=== PATIENT | female | born 1980 | race African-American/Black ===

== ENCOUNTER → 2020-06-30 15:52 | Outpatient (CLI) | payer BC, SELFPAY ==
--- NOTE | ~2020-06-30 | XR_ITS ---
EXAMINATION: XR abdomen/kub 1V EXAM DATE: 06/30/2020 16:12 INDICATION: Left ureteral stone, for surgery. Now having right-sided pain 3-4 days. TECHNIQUE: Frontal projection of the upper abdomen, frontal projection lower abdomen/pelvis for inter pretation. There is no prior study for comparison. FINDINGS: Small to moderate amount of stool and gas, stool is obscuring the ureterovesicular junctio ns. Calcifications in the pelvis are believed to be phleboliths. Renal contours are unremarkable. N o small bowel dilation. Left upper quadrant surgical clips. Lower lumbar facet arthropathy. IMPRESSION: 1. Pelvic calcifications. Reviewed, dictated and finalized at location A. IMPRESSION: 1. Pelvic calcifications.
== END ==
PROVIDERS: Visit Provider Urology
DX: N20.1 Calculus of ureter (principal)
CPT/HCPCS: 74018

== ENCOUNTER 2021-02-25 11:17 | Outpatient (CLI) | payer BC, SELFPAY ==
--- NOTE | 2021-02-25 11:33 | ECG_ITS ---
Measurements Intervals [place] Rate: 54 P: 8 IL: 136 QRS: 32 QRSD: 94 T: 25 QT: 388 QTc: 371 Interpretive Statements SINUS BRADYCARDIA MINIMAL Q WAVES- INFERIOR LEADS BORDERLINE ECG Electronically Signed On 02-25-2021 12:01:12 [employer] by Hai Mix D.O.
[2021-02-25 12:03] LABS: Anion Gap 3 mmol/L (8-16); Blood Urea Nitrogen 14 mg/dL (7-17); Calcium 9.5 mg/dL (8.4-10.2); Carbon Dioxide 30 mmol/L (22-30); Chloride 98 mmol/L (98-107); Estimated Glomerular Filt Rate > 60; Glucose 89 mg/dL (65-110); Potassium 3.9 mmol/L (3.4-5.0); Sodium 131 mmol/L (137-145)
== END 2021-02-25 11:18 | disposition home or self-care (01) ==
PROVIDERS: Anesthesiology; Visit Provider Orthopaedic Surgery
DX: I10 Essential (primary) hypertension (principal); Z79.899 Other long term (current) drug therapy
CPT/HCPCS: 36415; 80048; 93005

== ENCOUNTER 2021-03-03 00:53 | Day surgery (SDC) | payer BC, SELFPAY ==
[2021-02-24 10:13] VITALS: BMI 31.4
--- NOTE | 2021-02-24 10:26 | PC.NURSE ---
Report to the Outpatient Waiting Room, entrance under the green pavilion located off [facility], at time 9:00 on date 03/03/21. OR Time: 11:00. - You and your visitor will be asked a series of questions to screen for COVID 19 for your protection. - A mask is required within the hospital. - Only one visitor is allowed at this time. Patient visitors will be guided where to wait when not with patient. Preoperative COVID Testing Requirements: No COVID Test needed if: (proof is required; if not received patient will have Rapid Test prior to entry) - Patient has received COVID Vaccine at least 14 days prior to procedure date or - Patient has positive COVID test result within last 90 days of surgery date. COVID Test needed if above criteria is not met If not COVID vaccinated a COVID test must be conducted within 72 hours of surgery and patient is asked to isolate self from time of testing until procedure. You will go to the [facility] for your COVID testing. The [facility] is located at the corner of [address] [facility]. You will only be called if COVID results are positive and your surgeon may reschedule your elective surgery date. Patients may have clear liquids (water, carbonated beverages, clear teas, apple juice) until 3 hours prior to surgery (8:00) with a maximum of 20 ounces. - No food from midnight until time of surgery - Infants may have breast milk until 4 hours before surgery, formula 6 hours prior to surgery. - Children will be allowed to drink immediately following surgery. If applicable, please bring a bottle or sippy cup to assist with drinking. Juice, water, soda, and popsicles are readily available. For infants on formula, please bring formula the day of surgery. Pacifiers are allowed. Take the following medications with a SIP of water the morning of surgery: AMLODIPINE Medications to discontinue per physician: VITAMINS/SUPPLEMENTS Date to take last dose: 02/27/21 Please no make-up, nail tamazight, hairspray, perfume, deodorant, or body powder the day of surgery. No jewelry (including any body piercings) or valuables the day of surgery, leave them at home. Please take a shower or bath the night before, or the morning of, surgery with an antibacterial soap. Wear comfortable, loose fitting clothing. - Jewelry must be removed prior to entering the operating room. Rings and piercings that are not removed may be cut off. - The hospital will not accept responsibility for valuables. - Please leave all valuables, including medications, at home the day of surgery. If you are going home after surgery, a licensed customer service driver must drive you home. - NO public transportation without another adult. - We recommend that an adult stay with you for 24 hours following discharge. - We also recommend that you do not drive, make important decision, drink alcoholic beverages, or take any drugs that were not prescribed by your health care provider for at least 24 hours after your discharge time. Follow any additional instructions given to you from your surgeon. Telephone instructions given to ZOHAIB GERBER and asked if any additional questions and then verbalized understanding. Patient advised to call surgeon office or pre surgery nurse liaison [phone] if any additional questions.
--- NOTE | 2021-03-02 14:26 | WPDANESEPPF ---
Anes - Initial Pre Proc Eval Procedure: Operation Date: 03/03/21 11:00 Proposed Procedures p Right Knee Arthroscopy, Lateral Release with Tendon Debridement - Brad Ortega MD Date/Time: 03/02/21 14:26 Surgeon: Brad Ortega MD Pre Op Diagnosis: right patellar tendonitis Patient Data Age: 40 Gender: F Height: 1.65 m Weight: 85.73 kg Allergies Allergy/AdvReac Type Severity Reaction Status Date / Time tree and shrub pollen Allergy Severe Anaphylaxis Verified 03/03/21 09:32 gabapentin AdvReac Mild Nausea Verified 03/03/21 09:32 NSAIDS (Non-Steroidal AdvReac Mild Other Verified 03/03/21 09:39 Anti-Inflamma Home Medications Medication Instructions Recorded Confirmed Type amlodipine 5 mg tablet 5 mg PO DAILY 11/27/20 03/03/21 History chlorthalidone 25 mg tablet 25 mg PO DAILY 11/27/20 03/03/21 History multivitamin 1 tablet PO DAILY 02/24/21 03/03/21 History Patient hx anesthesia problems: none Family hx anesthesia problems: none Results Review: All pre-operative results and documents have been reviewed as part of the pre-operative evaluation. [facility] Past Medical History Medical History (Updated 03/02/21 @ 14:27 by Lex Chaudhary MD) Allergic rhinitis Anxiety state, unspecified Bronchitis Chest pain, unspecified Conjunctivitis Contact dermatitis Elevated blood pressure reading with diagnosis of hypertension Eustachian tube dysfunction GERD (gastroesophageal reflux disease) Hypertension Hypoglycemia Knee pain Neck pain Obesity Otitis media Pharyngitis Plantar fasciitis Sciatica Shoulder pain Sinusitis, acute Sleep disorder Tuberculosis screening UTI (urinary tract infection) Vertigo Family History Family History Father Asthma Other Acute myocardial infarction Arthritis Cerebrovascular accident Hypertension Kidney failure Leukemia Social History Social History Smoking status: Never smoker Alcohol intake: current Alcohol use details: 2/MONTH Substance use: never Substance use type: does not use Living arrangements: with family Spiritual care concerns: No Anes - Eval Final PreProcedure Day of Procedure 03/02/21 14:26 Patient weight: obese Heart: regular rate and rhythm Lungs: clear to auscultation and normal air movement Airway: Mallampati scale class II Neurological: alert and oriented Last oral intake: >/= 8 hours ASA classification: III Emergent: no Anesthetic plan: proceed Anesthesia type and monitoring: general LMA Results Review: All pre-operative results and documents have been reviewed as part of the pre-operative evaluation. Informed Consent: The patient's anesthetic plan and its attendant risks and benefits were discussed with the patient/family/POA. Questions were solicited and answers provided to the satisfaction of the patient/family/POA.
[2021-03-03] VITALS (9 sets, daily range): BP systolic 131–144; BP diastolic 72–92; PULSE 64–99; RESP 14–20; TEMP 36.4–36.9; O2SAT 98–100
--- NOTE | 2021-03-03 07:25 | WPDHPUPDATE1 ---
History and Physical Update Update Date/Time: 03/03/21 07:25 History and Physical has been reviewed, including an updated exam of the patient. There are NO changes in the patient's condition. Risks, benefits, and alternatives have been discussed and questions answered. Patient agrees to proceed with procedure.
[2021-03-03] MEDS: ACETAMINOPHEN 500 MG TABLET 1000 MG PO (09:35)
[2021-03-03] MEDS: LACTATED RINGERS 1,000 ML 30 ML IV CONT (10:05)
[2021-03-03] MEDS: KETOROLAC 15 MG/ML VIAL (*BKC) IV PUSH (10:06)
--- NOTE | 2021-03-03 10:24 | SUR.PREOP ---
pt prefers walker to crutches,dr lou aware,left message for pt to instruct.
[2021-03-03 10:27] LABS: Sodium 132 mmol/L (137-145)
[2021-03-03] MEDS: ceFAZolin 2 GM/D5W 50 ML 2 GM/50 ML BAG IVPB (10:53)
[2021-03-03] MEDS: BUPIVACAINE/EPINEPHRINE 0.25% 10 ML VIAL 20 ML INFILTRATE (11:22)
--- NOTE | 2021-03-03 12:31 | SUR.PHASEI ---
PT AWAKE, STATES PAIN TO RT KNEE 08/14. PT REFUSING PAIN MEDS AT THIS TIME.
--- NOTE | 2021-03-03 14:35 | P.OP_ITS ---
Procedure Note - Detailed Date of Procedure 03/03/21 Pre-op Diagnosis 1. Right patellar tendonitis 2. Lateral patellar facet overload syndrome. Post-op Diagnosis same Procedure Performed 1. Arthroscopic lateral release 2. Open patellar tendon debridement Surgeon Brad Ortega MD [employer] Manager[employer] Supervisor Dinora Plaza PA-C Anesthesia general Indications Severe sharp pain at the inferior lateral pole of the patella. Radiographs showed chondromalacia patella and trochlear chondromalacia with lateral tilting of the patella. MRI showed signal at the patella tendon patellar attachment the lateral aspect. Subtle bony changes as well. The patient was exquisitely tender at this area. This was limiting her ability to perform normal activities of daily living and exercise. Findings Moderate patellofemoral chondromalacia. Mild degeneration of the proximal patellar tendon attachment at the lateral 3rd of the patella consistent with the MRI findings. Description of Procedure Patient was given a general anesthetic. Preoperative antibiotics were given. The knee was prepped and draped in the usual sterile fashion. The arthroscopic knee raphael was used. The proposed incision was marked. 0.5% Marcaine with epinephrine was injected. 20 cc total used throughout the procedure. The lateral portal was slightly extended to allow for exposure of the lateral patellar tendon attachment at the patella. Inspection of the joint revealed [id number] patellofemoral chondromalacia grade 2. Fairly large area. Mild lateral patellar tilt. No other significant abnormal findings. The lateral release was performed with the hook radiofrequency Wand. The release was started just distal to the vastus lateralis. This was brought down to the lateral arthroscopic portal. Patella showed excellent freedom of movement to tilting. Incision was gently manipulated to visualize the distal lateral aspect of the patella tendon and patella. There was a slight split in the tendon consistent with the MRI findings. This was opened and mildly degenerative tissue was debrided with the knife and rongeur. The distal bony attachment that corresponded with the area of increased signal on the MRI, was also lightly debrided. tourniquet was released. The wounds were irrigated and closed with interrupted 3-0 and 4-0 Monocryl suture followed by Steri-Strips. A sterile dressing with a bulky bolster along the lateral retinaculum was placed. Light compression with an Ton bandage. Knee immobilizer placed. The patient was extubated and brought to the recovery room in stable condition. There were no complications. Estimated Blood Loss 10 Drains No Pathology none sent Complications No immediate complications Condition stable Disposition same day
== END 2021-03-03 14:30 | disposition home or self-care (01) ==
PROVIDERS: Anesthesiology; Visit Provider Orthopaedic Surgery
PROC: (CPT 29870; principal; 2021-03-03 11:00)
DX: M76.51 Patellar tendinitis, right knee (principal); M22.8X1 Other disorders of patella, right knee; I10 Essential (primary) hypertension; E66.9 Obesity, unspecified; Z68.32 Body mass index [BMI] 32.0-32.9, adult
CPT/HCPCS: 29873; 11043; 36415; 84295; A9270; J0690; J1100; J1885; J2250; J2405; J2704; J3010; J7120; L1830

== ENCOUNTER 2023-09-24 21:10 | Emergency (ER) | payer BC, SELFPAY ==
[2023-09-24] VITALS (13 sets, daily range): BP systolic 120–152; BP diastolic 79–82; PULSE 59–80; RESP 9–22; TEMP 36.6; O2SAT 98–100
--- NOTE | ~2023-09-24 | CT_ITS ---
EXAMINATION: CT abdomen pelvis wo con DATE: 09/24/2023 23:42 INDICATION: Left flank pain radiating anteriorly. TECHNIQUE: Computed tomography (CT) of the abdomen and pelvis was performed without intravenous contr ast. Automated exposure control and iterative reconstruction technique were employed. Exam dose: 714 .53 mGy-cm total exam DLP. COMPARISON: 06/30/2020 KUB FINDINGS: The lung bases are clear. Normal heart size. No pericardial or pleural effusion. Small sliding hiatal hernia. Status post gastric stapling procedure. The liver, gallbladder, bile ducts, spleen, pancreas, pancreatic duct, adrenal glands and kidneys are unremarkable on this limited noncontrast examination. No urinary tract calculus or hydroureteronephrosis. Bilateral calcified pelvic phleboliths. No hydrou reteronephrosis. Normal caliber of the abdominal aorta. No intraperitoneal or retroperitoneal or pelvic mass lesion or adenopathy or ascites. Urinary bladder is unremarkable. Normal appendix. Diverticulosis of the colon; no CT evidence of diverticulitis. No bowel obstruction or intraperitoneal free air. Fat-containing umbilical hernia. Grade 1 anterolisthesis at L5-S1. No suspicious osteolytic or osteoblastic lesions. IMPRESSION: Small sliding hiatal hernia Postoperative change of the stomach No urinary tract calculus or hydroureteronephrosis is evident Normal appendix Diverticulosis of the colon Reviewed, dictated and finalized at Location A. Reviewed, dictated and finalized at location A.
[2023-09-24 22:46] LABS: Basophils Absolute Auto 0.1 K/mm3 (0.0-0.1); Basophils Percent Auto 0.8 % (0.2-1.2); Eosinophils Absolute Auto 0.2 K/mm3 (0-0.3); Eosinophils Percent Auto 2.5 % (0-4.4); Hematocrit 37.9 % (37.0-47.0); Immature Granulocyte Absolute 0.01 K/mm3 (0.00-0.031); Immature Granulocyte Percent A 0.1 % (0-0.5); Lymphocytes Absolute Auto 3.02 K/mm3 (0.9-3.2); Mean Corpuscular HGB Conc 31.7 g/dl (32-36); Mean Corpuscular Hemoglobin 25.9 pg (26-34); Mean Corpuscular Volume 81.9 fl (80-100); Mean Platelet Volume 10.2 fl (7.4-10.4); Monocytes Absolute Auto 0.9 K/mm3 (0.1-0.6); Monocytes Percent Auto 11.9 % (2.6-8.5); Neutrophils Absolute Auto 3.6 K/mm3 (1.3-6.7); Neutrophils Percent Auto 45.7 % (45.5-73.1); Platelet Count Result 306 k/mm3 (150-375); Red Blood Count 4.63 M/mm3 (4.2-5.4); Red Cell Distribution Width 14.2 % (11.5-14.5); White Blood Count 7.8 K/mm3 (4.5-10.0)
[2023-09-24 22:49] LABS: Appearance Urine Clear (Clear); Bilirubin Urine Negative (Negative); Blood Urine Negative (Negative); Color Urine Yellow (Yellow); Glucose Urine UA Negative (Negative); Ketones Urine Negative (Negative); Leukocyte Esterase Ur Negative LEU/UL (Negative); Nitrate Urine Negative (Negative); Protein Urine Negative (Negative); Specific Grav Ur 1.019 (1.001-1.035); Urobilinogen Urine 0.2 mg/dL (<2.0)
[2023-09-24 22:55] LABS: Alanine Aminotransferase 18 U/L (6-35); Albumin Level 3.9 g/dL (3.5-5.1); Alkaline Phosphatase 78 U/L (38-126); Anion Gap 9 mmol/L (4-12); Aspartate Amino Transferase 25 U/L (14-36); Bilirubin,Total 0.2 mg/dL (0.2-1.3); Blood Urea Nitrogen 21 mg/dL (7-17); Calcium 9.3 mg/dL (8.4-10.2); Carbon Dioxide 27 mmol/L (22-30); Chloride 101 mmol/L (98-107); Estimated CRCL calculation 83 ml/min; Estimated Glomerular Filt Rate > 60; Glucose 86 mg/dL (65-110); Lipase 141 U/L (23-300); Potassium 3.3 mmol/L (3.4-5.0); Sodium 137 mmol/L (137-145)
[2023-09-24 23:05] LABS: Add Urine Microscopic? NO
--- NOTE | 2023-09-24 23:32 | PC.NURSE ---
Patient in CT at this time.
[2023-09-25 00:09] VITALS: PULSE 58; RESP 14; O2SAT 100
[2023-09-25 00:17] VITALS: PULSE 65; RESP 20; O2SAT 100
[2023-09-25 00:30] VITALS: BP 132/82; PULSE 60; RESP 21; O2SAT 100
[2023-09-25 00:31] VITALS: PULSE 61; RESP 16; O2SAT 100
--- NOTE | 2023-09-25 00:41 | ED.GENADULT ---
HPI - General Adult General Chief complaint: Abdominal Pain Stated complaint: abd pain Time Seen by Provider: 09/24/23 23:00 History of Present Illness HPI narrative: This is a 43-year-old female presenting with 6 days of left-sided flank pain. She describes it as being stabbed with a butter knife. It is in the left lower back left lower quadrant. It is constant. She says this feels like when she has had kidney stones in the past. It is worse with movement. Patient denies fevers chills nausea vomiting diarrhea, chest pain difficulty breathing. No dysuria urgency or frequency. Patient has not taken anything for pain control and refused all pain meds in the ED. Related Data Home Medications Medication Instructions Recorded Confirmed amlodipine 5 mg tablet (Norvasc) 5 mg PO DAILY 11/27/20 05/28/21 chlorthalidone 25 mg tablet 25 mg PO DAILY 11/27/20 05/28/21 multivitamin 1 tablet PO DAILY 02/24/21 05/28/21 Allergies Allergy/AdvReac Type Severity Reaction Status Date / Time tree and shrub pollen Allergy Severe Anaphylaxis Verified 09/24/23 22:15 gabapentin AdvReac Mild Nausea Verified 09/24/23 22:15 NSAIDS (Non-Steroidal AdvReac Mild Other Verified 09/24/23 22:15 Anti-Inflamma PMFSH Past Medical History Medical History Allergic rhinitis Anxiety state, unspecified Bronchitis Chest pain, unspecified Conjunctivitis Contact dermatitis Elevated blood pressure reading with diagnosis of hypertension Eustachian tube dysfunction GERD (gastroesophageal reflux disease) Hypertension Hypoglycemia Knee pain Neck pain Obesity Otitis media Pharyngitis Plantar fasciitis Sciatica Shoulder pain Sinusitis, acute Sleep disorder Tuberculosis screening UTI (urinary tract infection) Vertigo Family History Family History Father Asthma Other Acute myocardial infarction Arthritis Cerebrovascular accident Hypertension Kidney failure Leukemia Social History Social History Alcohol intake: current Alcohol use details: 2/MONTH Substance use: never Substance use type: does not use Living arrangements: with family Spiritual care concerns: No Exam Narrative: APPEARANCE: No apparent distress. Head: atraumatic. EYES: EOMI, NOSE: Atraumatic NECK: Trachea midline RESPIRATORY: No increased rate of breathing CARDIOVASCULAR: RRR, ABDOMINAL: Non-distended, left lower quadrant tenderness, distractible, no CVA tenderness MUSCULOSKELETAl: No obvious deformities NEURO: Alert. Moving 4/4 extremities SKIN:: Warm, dry. Normal color PSYCHIATRIC: Normal affect Course Vital Signs Vital signs: Vital Signs Temperature 97.9 F 09/24/23 21:12 Pulse Rate 79 09/24/23 21:12 Respiratory Rate 16 09/24/23 21:12 Blood Pressure 152/81 H 09/24/23 21:12 Pulse Oximetry 98 09/24/23 21:12 Oxygen Delivery Room Air 09/24/23 21:12 Temperature 97.9 F 09/24/23 21:12 Pulse Rate 61 09/25/23 00:31 Respiratory Rate 16 09/25/23 00:31 Blood Pressure 132/82 09/25/23 00:30 Pulse Oximetry 100 09/25/23 00:31 Oxygen Delivery Room Air 09/24/23 21:12 Medical Decision Making [facility] Narrative Medical decision making narrative: -Course: 43-year-old female presenting with left-sided flank pain. Laboratory studies unremarkable. CT showed a possible 0.2 cm nonobstructing stone versus a phlebolith. Patient appears to be resting comfortably and has denied any pain medication. Patient will be discharged home with flomax. It was stressed that this is possibly a kidney stone but not a definitive diagnosis. If her condition is to change or she develops new symptoms I want her to return to the emergency department for re-evaluation. -DDX includes but is not limited to: Kidney stone, MSK pain, urinary tract infection, ovarian cyst -Co-
[2023-09-25 01:06] VITALS: BP 138/89; PULSE 62; RESP 17; O2SAT 100
== END 2023-09-25 01:08 | disposition home or self-care (01) ==
PROVIDERS: Physician Assistant; Emergency Provider Emergency Medicine
DX: R10.32 Left lower quadrant pain (principal); N20.0 Calculus of kidney; I10 Essential (primary) hypertension; E66.9 Obesity, unspecified; Z68.35 Body mass index [BMI] 35.0-35.9, adult; K21.9 Gastro-esophageal reflux disease without esophagitis; G47.9 Sleep disorder, unspecified; Z87.440 Personal history of urinary (tract) infections; Z87.442 Personal history of urinary calculi; K44.9 Diaphragmatic hernia without obstruction or gangrene; K57.90 Diverticulosis of intestine, part unspecified, without perforation or abscess without bleeding
CPT/HCPCS: 36415; 74176; 80053; 81003; 81025; 83690; 85025; 99284

== ENCOUNTER 2023-12-22 12:14 | Outpatient (CLI) | payer BC, SELFPAY ==
--- NOTE | ~2023-12-22 | XR_ITS ---
XR knee RT min 4V 12/22/2023 13:17 Indication: Right knee pain Procedure: 4 views right knee Comparison: No prior studies for comparison. Findings: No fracture, subluxation or dislocation. There is mild patellofemoral compartment osteoarth ritis. No joint effusion. No foreign bodies. Impression: 1: Mild patellofemoral compartment osteoarthritis. Reviewed, dictated and finalized at location B. Impression: 1: Mild patellofemoral compartment osteoarthritis.
== END 2023-12-22 12:15 | disposition home or self-care (01) ==
PROVIDERS: PCP Orthopaedic Surgery; Visit Provider Orthopaedic Surgery
DX: M17.11 Unilateral primary osteoarthritis, right knee (principal)
CPT/HCPCS: 73564